=== PATIENT | male | born 1930 | race Caucasian/White ===

== ENCOUNTER 2017-09-19 20:52 | Inpatient (IN) | payer MEDICARE ==
[2017-09-19] MEDS ORDERED: Metoprolol Tartrate 5 MG/5 ML VIAL ONE (21:20)
[2017-09-19 21:59] LABS: CKMB 3.1 ng/mL (0-6.6); Troponin I 0.028 ng/mL (< 0.028)
[2017-09-19] MEDS ORDERED: Acetaminophen 325 MG TAB PO PRN (22:03)
[2017-09-19] MEDS ORDERED: Labetalol HCl 100 MG/20 ML VIAL SLOW IVP PRN (22:10)
[2017-09-20] MEDS: Sodium Chloride 0.9% 1,000 ML IV SCH ×3 (00:33→15:27)
[2017-09-20 01:01] LABS: Troponin I 0.061 ng/mL (< 0.028)
[2017-09-20 02:05] VITALS: BMI 18.2
[2017-09-20 03:52] LABS: #Eosinphils 0.1 thou/uL (0.0-0.7); #Lymphocytes 1.4 thou/uL (1.20-3.40); #Monocytes 0.9 thou/uL (0.11-0.59); #Neutrophils 5.4 thou/uL (1.40-6.50); %Basophils 0.2 % (0.0-1.0); %Eosinophils 1.1 % (0.0-10.0); %Lymphocytes 18.3 % (21.0-51.0); %Monocytes 11.2 % (0.0-10.0); %Neutrophils 69.2 % (42.0-75.0); Hemoglobin 14.5 g/dL (14.0-18.0); Mean Corpuscular HGB CONC 35.1 g/dL (32.0-36.0); Mean Corpuscular Hemoglobin 32.8 pg (27.0-31.0); Mean Corpuscular Volume 93.5 fL (78.0-98.0); Mean Platelet Volume 7.1 fL (7.4-10.4); Platelet Count 188 thou/uL (130-400); RBC Distribution Width 10.9 % (11.5-14.5); Red Blood Cell (RBC) Count 4.41 mill/uL (4.70-6.10); White Blood Cell (WBC) Count 7.8 thou/uL (4.8-10.8)
[2017-09-20 04:17] LABS: Troponin I 0.056 ng/mL (< 0.028)
[2017-09-20 04:46] LABS: Chloride 103 mmol/L (98-107); Potassium 3.5 mmol/L (3.5-5.1); Sodium 139 mmol/L (136-145)
[2017-09-20 04:47] LABS: Calcium 9.2 mg/dL (7.8-10.44); Glucose 87 mg/dL (83-110)
[2017-09-20 04:48] LABS: Anion Gap 11 mmol/L (10-20); Carbon Dioxide 29 mmol/L (23-31)
[2017-09-20 04:50] LABS: Calc. Creatinine Clearance 54 mL/min (70-130); Estimated GFR-MDRD 87
[2017-09-20 04:51] LABS: BUN (Urea Nitrogen) 16 mg/dL (8.4-25.7)
--- NOTE | 2017-09-20 08:20 | HP ---
CHIEF COMPLAINT: Presyncope. HISTORY OF PRESENT ILLNESS: Patient is a very pleasant, healthy 87-year-old male who lives by himsel f with past medical history of BPH, who presents to the hospital with complaints of presyncope like s ymptoms. Patient stated for the past 7 days, he has noticed that whenever he is sitting on his compu ter and trying to read his e-mails, he felt like he was about to pass out. This happened 2 or 3 time s at this time. Patient walked to the bed and tried to lay down to get some relief. Patient stated that since then it happened to him a few times and the patient is afraid especially if he is driving for the symptoms to occur. Patient denies any prodromal symptoms like diaphoresis, palpitations, any chest pain or chest pressure. Patient also feels that for the past few days, he has been complainin g of some abdominal bloating and also which has caused him to have some nausea. The patient states t hat he recently had his teeth pulled on 07/08/2017. Since then, he has not been eating very much. H rc has been on a very liquid diet and has lost a few pounds due to that. Patient states that whenever he eats, he feels a significant amount of fullness which is not attributed to any time and then he f eels nauseated and sometimes belches. Patient also stated that he was on prazosin, which was started about 6 months ago in February and the patient noticed that while he was on that medication, his blood pressure tended to be very low for w hich he has been taking it every other day. However, for the past few days, he has been taking it ev mónica single day because he is having frequent urination in the nighttime. Patient states that his PCP left, so now he has a new PCP who prescribed him tamsulosin, which he has not started as of yet. Rolando brothers thought that his symptoms could have been attributed to this. PAST MEDICAL HISTORY: He has a medical history of BPH. He has a history of brain bleed, nontraumat ic. The patient stated at this time he had headache and besides pain medications, he had no relief a nd that is when his doctors diagnosed him with a brain bleed. The patient also has had an ME accordi ng to him and he stated that, however, it was not because of coronary artery disease, it was due to s tress related. The patient states that his last catheterization, which has been a long time ago. [facility] physician stated that his arteries were normal. PAST SURGICAL HISTORY: He has had an appendectomy, a cholecystectomy and a left knee surgery. SOCIAL HISTORY: Denies any alcohol use, drug abuse or smoking history. The patient has a history of smoking and alcohol, which he quit in 1979. ALLERGIES: He has got no known drug allergies. MEDICATIONS: He takes lovastatin 20 mg daily, aspirin 81 mg daily, tamsulosin 0.4 mg daily. FAMILY HISTORY: Father had stroke at the age of 74, mother had stroke at the age of 79. REVIEW OF SYSTEMS: All negative except for the ones mentioned above in the HPI. PHYSICAL EXAMINATION: VITAL SIGNS: Temperature of 96.7, 61, 16, 99% on room air. His blood pressure is 190/94. GENERAL: He is awake, alert, and oriented x3, does not appear in any distress. CARDIOVASCULAR: S1, S2 present. No murmurs, rubs or gallops; however, his pulse seems to be irregul ar. LUNGS: Clear upon auscultation. No rhonchi or wheezes noted. ABDOMEN: Soft, nontender. Bowel sounds are present x2. EXTREMITIES: No edema. Pedal pulses present x2. He has got no neurological focal deficits. HEENT: I did look into his right ear, he had significant amount of cerumen in his right ear, unable to see his tympanic membrane. In the left ear, his tympanic membrane was pearly and was able to be v isualized. LABORATORY DATA: As of the following: WBC of 7.8, hemoglobin of 14.5, hematocrit 41.2, platelets of 188. Chemistry: Sodium of 139, potassium of 3.5, BUN of 16, creatinine of 0.84. Mildly elevated t roponins. TSH was normal. IMAGING: The patient had a CT head, which indicated some right mastoid and partial middle ear opacif ication and previous old surgical changes from his bleed. He also had a chest x-ray, which indicated bibasilar lung atelectasis or areas of patchy pneumonia. ASSESSMENT AND PLAN: The patient is a very pleasant 87-year-old male who presents to the hospital fo r presyncope. 1. Presyncope. This could be secondary due to a cardiac event versus one of his benign prostatic hy pertrophy medication versus even CT findings of right mastoid and partial middle ear opacification ve rsus arrhythmia. Patient's EKG did have some abnormal arrhythmia. It looks like he had frequent PAC s. The patient states that he has been evaluated by Cardiology in the past about this and was told t hat this was normal for him. However, given his history, we will consult Cardiology. We will also g et an echocardiogram. I have started him on his new medication, tamsulosin. We will also trend trop onins and continue to monitor the patient. I also have checked, ordered an orthostatic blood pressur e on this patient. 2. Abdominal bloating. This could be related to a cardiac event versus gastroparesis versus possibl y being a malignancy. This is a new finding for this patient. We will get a CT abdomen and pelvis f or a better view of his abdomen. If normal and if his cardiac workup is normal, may consider GI. We will put him on a PPI for now. 3. Mild malnutrition. The patient has not been eating for the past few months, but this is because he has 2 teeth pulled and also because he is supposed to be eating a liquid diet for his abdominal bl oating. We will continue to monitor. 4. Benign prostatic hypertrophy. We will continue his tamsulosin. 5. Deep venous thrombosis prophylaxis . We will put the patient on subcu heparin or Lovenox.
[2017-09-20] MEDS: Enoxaparin Sodium 40 MG/0.4 ML SYRINGE SC SCH (09:12)
--- NOTE | 2017-09-20 10:27 | CT ---
ABDOMEN AND PELVIC CT SCAN WITH IV CONTRAST: Date: 09/20/17 HISTORY: 87-year-old male with history of abdominal pain and diarrhea. FINDINGS: Chronic interstitial changes and honeycombing in the lung bases, evidence for chronic change. Status post cholecystectomy. Otherwise, visualized liver, pancreas, spleen, and adrenal glands are unremarka ble. No renal calculus or acute obstruction. Sigmoid colon diverticulosis without acute diverticul itis. No CT evidence for acute appendicitis. Multilevel variable severity lumbar spinal stenosis. IMPRESSION: No significant acute process in the abdomen or pelvis. Other findings as above. POS: MICHOACANO
--- NOTE | 2017-09-20 15:34 | ULT ---
"CAROTID DOPPLER 09/20/17 PROVIDED CLINICAL HISTORY: Syncope. FINDINGS: | Kraft scale and color doppler sonography with spectral analysis was performed of the extracranial gregory tid system bilaterally. Conspicuous atherosclerotic plaque is seen involving each proximal internal carotid artery. Elevation of peak systolic velocity within the mid right internal carotid artery to 1 65 cm/s with corresponding ICA to CCA ratio of 1.7. Antegrade flow is seen in the vertebral arteries. No evidence for hemodynamically significant stenosi s involving the left internal carotid artery. IMPRESSION: Nonspecific elevation of the peak systolic velocity within the right internal carotid artery without corresponding elevation of ICA to CCA ratio. POS: MICHOACANO"
[2017-09-20] MEDS ORDERED: Pravastatin Sodium 20 MG TAB PO SCH (21:00)
[2017-09-20] MEDS ORDERED: Tamsulosin HCl 0.4 MG CAP PO SCH (21:00)
[2017-09-21] MEDS: Sodium Chloride 0.9% 1,000 ML IV SCH ×2 (04:03→04:05)
[2017-09-21] MEDS: Enoxaparin Sodium 40 MG/0.4 ML SYRINGE SC SCH (08:08)
[2017-09-21] MEDS ORDERED: Aspirin 81 mg Enteric Coated Tablet PO SCH (09:00)
[2017-09-21] MEDS ORDERED: Prevnar 13-Val Conj/PF 0.5 ML SYRINGE IM ONE (09:00)
--- NOTE | 2017-09-21 09:02 | CON ---
DATE OF CONSULTATION: 09/20/2017 REFERRING PHYSICIAN: Dr. Cristhian Oneal. REASON FOR CONSULTATION: Abdominal bloating, tightness, and some nausea. He also feels as he is goi ng to faint after this episode. HISTORY OF PRESENT ILLNESS: Mr. Souleymane Roche is a very pleasant 87-year-old male who is very healthy except for history of benign prostatic hypertrophy. He used to take doxazosin . R ecently, he was placed on terazosin and he had an episode of syncope and he passed out. The medicine was changed to tamsulosin by Dr. Lennie Christianson in [place]. The patient has symptoms of what he sa ys he will not pass out. This happened as he would sometimes he working on the computer, sometimes h e feels as he is going to pass out when he go to lie down. He also complains of tightness in the epi gastric area after meals and feels uncomfortable and has nausea. At the same time, he also feels as he is going to pass out. He never had a syncope except if he . He has no dizziness. He has no ringing in the ears or any other neurological symptoms. He has no sensory deficit or motor weakness . Symptoms somewhat difficult to explain. This happens every time he eats. After he eats, he feels the abdomen is tight and uncomfortable and he has to keep on belching. Bowel movements are regular. There is no history of any hematochezia or any melena. He denies chest pain. No palpitation. No history of TIA in the past. No history of any seizure disorder. Symptoms are very difficult to unde rstand and I am not really sure there is connection between eating meals and feeling near passing out . He has no other relevant history. MEDICAL ILLNESSES: Prostatic hypertrophy on tamsulosin. He has no history of hypertension, heart di sease, diabetes, lung disease. SURGERIES: 1. Appendectomy. 2. Cholecystectomy. SOCIAL HISTORY: Patient quit smoking and drinking in 1980s. ALLERGIES: None. MEDICATIONS: 1. Lovastatin 20 mg once a day. 2. Aspirin. 3. Tamsulosin. FAMILY HISTORY: Both parents of stroke in the 70s. REVIEW OF SYSTEMS: A 10-point system review. Constitutional: No history of fever. No weight loss. His strength is good and no other relevant symptoms. Respiratory System: No history of chronic co ugh, hemoptysis, dyspnea. Cardiovascular System: No chest pain, no palpitation, no exertional dyspn ea, orthopnea, or PND. Gastrointestinal: As stated in the history of present illness. Genitourinar y: History of nocturia on tamsulosin. Musculoskeletal and Endocrine: Unremarkable. Neuropsychiatr ic: Unremarkable. PHYSICAL EXAMINATION: GENERAL: Patient is thin built. He is a very pleasant male appears very comfortable. He is awake, alert, and communicative. He is oriented to time, place, and person. VITAL SIGNS: Stable. His pulse is 67, blood pressure is 136/63. HEENT: Conjunctivae clear. NECK: Supple. No adenitis or thyromegaly noted. CARDIOVASCULAR SYSTEM: First and second heart sounds normal. LUNGS: Clear to auscultation. ABDOMEN: Soft and nontender. There are no organomegaly or masses. Bowel sounds normal. EXTREMITIES: Reveal no edema. LABORATORY DATA: CBC shows WBC 7800, hemoglobin 14.5, hematocrit 41.2, MCV 93.5, platelet count 188, 000, polymorphs 69, lymphocytes 18, monocytes 11. Serum chemistries: Sodium is 130, potassium is 3. 5, chloride is 103, bicarbonate 29, BUN is 16, creatinine 0.84, glucose 87, calcium 9.2. Troponin is 0.056. An abdominal CAT scan done showed no pathology. He had a carotid Doppler done today and the carotid Doppler shows no significant stenosis. CLINICAL IMPRESSION: An 87-year-old male with symptoms of near passing out without chest pain withou t any palpitation, or dyspnea. His workup including Doppler study negative. He has a carotid Dopple r study, which is negative. He had a CAT scan of the abdomen, which showed negative. Symptoms are v mónica difficult to understand and I am really not sure what is the connection between eating and feelin g near passing out. I did talk to the patient and explained to him about the information. I offered him to have an EGD and he is on will. I will plan for an EGD tomorrow and make further recommendat ions.
--- NOTE | 2017-09-21 09:02 | CON ---
DATE OF ADMISSION: 09/20/2017 CARDIOLOGY CONSULTATION PRIMARY CARE PHYSICIAN: In this hospital, Dr. Radha Pedro. REFERRING DOCTOR: Cassidy Benjamin M.D. REASON FOR CARDIOLOGY CONSULTATION: Syncopal episode. HISTORY OF PRESENT ILLNESS: Mr. Roche is a very pleasant 87-year-old male with history o f BPH and hypertension. He came to the emergency department for lightheadedness and near syncopal ep isode. On 09/12/2017, he drank some smoothie-like to drink. Since then he started having belching a fter eat and drink and at that time he started feeling the lightheadedness and on 09/18/2017, he went to see primary care doctor for belching and he was told to continue to take the omeprazole 20 mg onc e a day. At that time, the patient's terazosin was stopped and he started taking Flomax 0.4 mg once a day. The night of 09/18/2017, he had four cookies and milk. He took Flomax at that time and he di d not have belching-like sensation and that time he did not have any lightheadedness either and later that night after he ate yogurt, he started having belching and also after he started having lighthea dedness; however, he denies loss of the cultures or really passing out. Even though he was having li ghtheadedness, he could answer questions and responds to them well. During the near lightheadedness- like episodes, he has any shortness of breath, chest pain or discomfort in his chest, palpitations or fluttering or numbness to the left upper arm or any other cardiac complaints. During the initial Cardiology consult assessment, patient denies any cardiac complaints at this time. He has been seen by several cardiologists in the other hospital. He underwent cardiac catheterizatio n in 2004 at [facility] and he was told his coronary artery was normal. He is active, wa lking at the yard without any cardiac complaints, lightheadedness or dizziness. PAST MEDICAL HISTORY: 1. Hypertension. 2. BPH. 3. Hyperlipidemia. 4. History of bleeding inside the brain when he was very young. PAST SURGICAL HISTORY: 1. Cardiac catheterization in 2004, which shows normal according to the patient and the family julisabe r. 2. Bilateral cataract surgery in 2017. 3. Appendectomy. 4. Cholecystectomy. 5. Left knee surgery replacement. FAMILY HISTORY: The patient's mother had CVA at age of 74. The patient's father also had a CVA at t he age of 79. SOCIAL HISTORY: The patient lives by herself. He has a history of smoking, ETOH abuse, but he quit in 1979. ALLERGIES: He has no known drug allergies. HOME MEDICATIONS: Flomax 0.4 mg once a day, aspirin 81 mg once a day, lovastatin 20 mg once a day an d omeprazole 20 mg once a day. REVIEW OF SYSTEMS: Negative except patient uses walker sometimes for left knee pain and he has upper and lower dentures. Other than that, the patient denies any GI bleed, hematuria, blood in the stool , please see the HPI. PHYSICAL EXAMINATION: VITAL SIGNS: The patient's orthostatic blood pressure supine 161/72, sitting 136/63, standing 124/60 , pulse is 67, respiratory rate 16, O2 sat 99% on room air, temperature 97.5. GENERAL: Patient is well-developed, well-nourished without any acute distress. HEAD: Normocephalic, atraumatic. EYES: Extraocular muscle movement intact. ENT: Oral nasal mucosa is moist without lesion. At this moment, he does not have any dentures. NECK: No JVD. Neck is supple and normal range of motion. CHEST: The lung was clear to auscultate bilaterally. No rales, rhonchi, or wheezing noted. CARDIOVASCULAR: Regularly regular, normal S1, S2. There are no S3, S4. There are 2+ pulses in the dorsal pedis, popliteal, posterior tibial and the bilateral femoral arteries. There are bruits. Car otid pulse, bilateral carotid pulse present. No bruit or thrill noted and no edema in bilateral lowe r extremities. ABDOMEN: Soft, nontender, no mass to palpitate, nondistended, normal active sounds. MUSCULOSKELETAL: Able to move all extremities. Patient denied any claudication. SKIN: Warm and dry. No skin rash, lesion or bruise noted. NEUROLOGIC: Alert, oriented x4, awake, normal affect. Nonfocal. PSYCHIATRIC: Mood and affect normal. EKG: A 12-lead EKG showed a normal sinus rhythm and the telemetry records show no pulses . LABORATORY DATA: WBC 7.8, hemoglobin 14.5, hematocrit 41.2, platelets 188. Sodium 139, potassium 3. 5, BUN 16, creatinine 0.84. CK-MB 3.1. Troponin 0.028, 0.061, 0.056. TSH [address] abdomen kavita wed no significant acute process in the abdomen or pelvis. Chronic interstitial no change and honeyc omb in the lung bases. No renal calculus or obstruction . ASSESSMENT AND PLAN: 1. Lightheadedness secondary to possible vasovagal syncope, near syncopal episode. According to the patient, the patient has lightheadedness after the belching after each which is causing the patient started having the vasovagal near syncopal episode. The patient and the family denied the patient's losing consciousness and otherwise the patient is really active at home without any cardiac complaint s. The patient's carotid Doppler was done and the result is pending at this moment. However, I corie chase, the patient's condition is from vasovagal episode. We would like to continue to monitor the heladio dixon on the telemetry. 2. Benign prostatic hypertrophy. The patient's condition is stable with Flomax at this moment, we w ould like to continue to monitor. 3. Hypertension. The patient's blood pressure is stable. At this moment, the patient does not have any blood pressure medicine except Flomax which might decrease the patient's blood pressure. The rosina brothers's blood pressure is stable at this moment. We would like to continue to monitor. 4. Hyperlipidemia. She is not on any medication; however, she is on the Pravachol at this moment in the hospital. Thank you very much for allowing the Cardiology Service to participate in care of this patient. We m ay follow along with the patient care team and make up for further recommendation as appropriate.
[2017-09-21] MEDS ORDERED: PROPOFOL 200 MG/20 ML VIAL ONE (13:12)
--- NOTE | 2017-09-21 14:04 | PDOC.CTH ---
<Janny Mckeon - Last Filed: 09/21/17 14:32> Cardiology Progress Note - Subjective The pt seen and examined. No overnight events. No cardiac complaints. No belching or lightheadedness after eating since last night. - Objective Vital Signs Temp Pulse Resp BP BP Pulse Ox 09/21/17 12:00 97.9 F 73 16 161/85 H 97 09/21/17 07:35 97.8 F 62 18 148/67 H 98 09/21/17 04:07 97.9 F 56 L 14 126/60 96 Admit Weight 134 lb 8 oz Weight 134 lb 8 oz 09/20/17 09/21/17 09/22/17 06:59 06:59 06:59 Intake Total 1591 Output Total 500 Balance 1091 - Physical Examination General/Neuro: alert & oriented x3 Neck: no JVD present Lungs: CTA Heart: RRR Abdomen: soft Extremities: other: (No edema) - Telemetry Telemetry Rhythm: SR, PACs 60s - Labs Result Diagrams: 09/20/17 02:54 09/20/17 02:54 Troponin/CKMB CK-MB (CK-2) 3.1 ng/mL (0-6.6) 09/19/17 21:24 Troponin I 0.056 ng/mL (< 0.028) H 09/20/17 02:54 - Assessment/Plan 1. lightheadedness 2/2 vasovagal episode from belching - EGD was negative. He no longer has belching or lightheadedness after having large lunch. 2. s/p 10 sec. Afib - today during EGD. The pt was asymptomatic. D/c home with EVR for 1wk. HTN - stable 3. Hyperlipidemia - on Statin MAR reviewed * From Cardiac standpoint, the pt is stable to d/c home. 1wk EVR will be sent to the pt's address. * The pt will f/u with Dr Pedro' office within 1 month. Review of Systems - Review of Systems Constitutional: reports: no symptoms reported EENTM: reports: no symptoms reported Respiratory: reports: no symptoms reported Cardiac (ROS): reports: no symptoms reported ABD/GI: reports: no symptoms reported : reports: no symptoms reported Musculoskeletal: reports: no symptoms reported <Pedro,G Lui - Last Filed: 09/21/17 22:16> Cardiology Progress Note - Objective Vital Signs Temp Pulse Resp BP BP BP Pulse Ox 09/21/17 15:15 97.6 F 66 18 141/60 H 144/67 H 144/67 H 97 09/21/17 12:00 97.9 F 73 16 161/85 H 97 Admit Weight 134 lb 8 oz Weight 134 lb 8 oz 09/20/17 09/21/17 09/22/17 06:59 06:59 06:59 Intake Total 1591 Output Total 500 Balance 1091 - Labs Result Diagrams: 09/20/17 02:54 09/20/17 02:54 Troponin/CKMB CK-MB (CK-2) 3.1 ng/mL (0-6.6) 09/19/17 21:24 Troponin I 0.056 ng/mL (< 0.028) H 09/20/17 02:54 - Assessment/Plan Pt. was seen and eval. by me. I have discussed the pt. and plan and agree with the A/P by the AMBERLY Mckeon.
[2017-09-21 16:23] VITALS: BP 144/67; TEMP 97.6
[2017-09-21] MEDS ORDERED: Tamsulosin HCl 0.4 MG CAP PO SCH (17:00)
[2017-09-21] MEDS ORDERED: Atorvastatin Calcium 10 MG TAB PO SCH (21:00)
--- NOTE | 2017-09-21 21:53 | ADD-CON ---
ADDENDUM DATE OF CONSULTATION: 09/20/2017 Please refer to the notes already dictated by the nurse practitioner, Janny Mckeon NP. INDICATION FOR CONSULTATION: An 87-year-old patient with a history of presyncopal episodes. HISTORY OF PRESENT ILLNESS: This very unfortunate 87-year-old gentleman who has actually been very h ealthy, had been complaining recently of having not been able to eat. He has complaints of nausea. Everytime, he tries to eat, he has not been eating. He has lost about 30 pounds in the last 6 months . He has been given medications for prostate hypertrophy and he actually passed out, had a syncopal episode back in February after taking the medication, he stopped this medication and was started on s omething else. He has recently been doing well until then recently he started having some presyncopa l episodes. When he was sitting at the computer, he felt like he might pass out, but he has also no t been eating. The last episode he stated when he actually felt like he was going to pass out. He h as made himself a mixture of juice from apple, banana, peach and orange juice. He then was sitting d own and knows he almost passed out after doing this, but continues to have problems with eating. He is actually afraid to eat now for fear that he would become nauseated. He has had no previous signif icant abnormalities. He has had a cholecystectomy before. He did state that at approximately in 200 5, he had a cardiac catheterization and was told that he had normal coronary arteries. He did have a n echocardiogram today which shows a normal ejection fraction and no significant abnormalities were n oted on the echocardiogram. He did have cardiac enzymes performed, these are unremarkable. There is no evidence of myocardial infarction. He was found to have a right carotid artery stenosis, most li cami uncertain of the severity of this and may need further evaluation. At this time, we were asked to see him due to the presyncopal episodes, but these do seem to be associated with his lack of eatin g, but may certainly have something to do with his heart. He may be having a bradycardia or arrhythm ias, but he is unaware of any significant arrhythmias; however, he did say that he has always had an irregular heart rate. Otherwise, he has been relatively healthy gentleman. For his past medical history, social history, family history, allergies, medications, review of syste ms, please refer to the notes dictated by the nurse practitioner. PHYSICAL EXAMINATION: GENERAL: Reveals an elderly gentleman who is in no acute distress at this time. He is alert and russell ented. VITAL SIGNS: Blood pressure is 148/63 supine, sitting was 150 and standing was 117/57. He obviously has orthostatic hypotension. Otherwise, vital signs were stable. HEENT: Shows the head to be normocephalic and atraumatic. He did have very soft right carotid bruit noted. CHEST: Clear to auscultation without rales, rhonchi or wheezing. CARDIOVASCULAR: The heart rate is regular with occasional ectopy. There were no significant murmurs , heaves, thrills, bruits or rubs noted. He does have a very soft systolic murmur noted at the apex, otherwise is unremarkable. ABDOMEN: He is flat, is nontender. I did not palpate any masses. EXTREMITIES: Show no clubbing, cyanosis or edema. Pedal pulses are present. NEUROLOGIC: The patient appears to be fully intact. He is edentulous. SKIN: Warm and dry. IMPRESSION AND RECOMMENDATIONS: 1. Presyncopal episodes, most likely brought on by the lack of caloric intake and also probably some dehydration. He does appear to have orthostatic hypotension and most likely this is the etiology of the presyncopal episodes. We certainly can rule out whether or not he is having any arrhythmias. W e will watch him on the monitor. He may need to have an event monitor when he is discharged from the hospital. Otherwise, his cardiac status appears to be stable at this time, ejection fraction was no rmal. He had a cardiac catheterization in 2004 and was told he had normal coronary arteries and he h as not had any chest pain that would indicate coronary artery disease. 2. History of abdominal discomfort and nausea. He is undergoing an endoscopy tomorrow to determine whether or not there are any abnormalities. He may have a hiatal hernia. We will need to evaluate, but believe the CT scan was unremarkable. At this time, he remains stable from a cardiac standpoint. We would be more than happy to follow the patient with you to determine whether or not some of his presyncopal episodes may be associated with arrhythmias and most likely it is due to his weight loss and decreased p.o. and oral intake.
--- NOTE | 2017-09-22 00:41 | DIS ---
DATE OF ADMISSION: 09/20/2017 DATE OF DISCHARGE: 09/21/2017 CONDITION AT THE TIME OF DISCHARGE: Stable and improved. DISCHARGE DIAGNOSES: 1. Near syncope, likely vasovagal episode versus orthostatic hypotension. 2. Orthostatic hypotension resolved after IV fluid resuscitation. 3. Ten second run of atrial fibrillation during EGD, resolved. 4. Dyslipidemia. PRIMARY CARE PHYSICIAN: Lennie Christianson in [place]. DISCHARGE MEDICATIONS: Remain the same as admission medication, tamsulosin 0.4 mg daily, lovastatin 40 mg daily, aspirin 81 mg daily. INHOUSE CONSULTATIONS: Cardiology, Dr. Pedro and Gastroenterology, Dr. Martinez. PROCEDURES DONE IN THE HOSPITAL: 1. CT scan of the abdomen and pelvis which is negative for any acute process. 2. EGD by Dr. Edmonds. This was reportedly normal, but I do not have access to the formal report at this time. 3. Carotid Doppler ultrasound, which shows nonspecific elevation of the peak systolic velocity in th e right internal carotid artery without corresponding elevation of the ICA to CCA ratio. HISTORY OF PRESENTING ILLNESS: Mr. Roche is a very pleasant and very independent 87-year-old male who was in fairly good health who presented to the emergency room for dizziness and lightheadedness. Complained of some abdominal bloating and nausea. He has been on a very poor liquid diet because of some teeth being pulled out last 2 months ago. He also has lost a few pounds secondary to that. Up on presentation, he was hemodynamically stable. A CT scan of the head was done which showed some rig ht mastoid and partial middle ear opacification without any acute changes. Chest x-ray showed atelec tasis versus pneumonia. His blood pressure was 190/94 upon presentation. He was admitted for furthe r workup on telemetry unit. Please see admission history and physical for further detail. He was fo und to have some PACs on tele monitoring. A CT scan of the abdomen and pelvis was ordered by the adm itting physician. HOSPITAL COURSE: He underwent extensive workup including carotid Doppler ultrasound and CT scan of t he abdomen and pelvis and EGD as above. All of this was rather unremarkable. The patient was found to be orthostatic on presentation. He was started on IV fluids and orthostatics were repeated and hi s orthostatic changes have resolved. He was also seen by Cardiology for his near syncopal episode. They did notice that the patient had 1 0-second run of atrial fibrillation while getting endoscopy earlier today. They recommended an event monitor and Cardiology office will set it up and it will be delivered to the patient's house. They have cleared the patient for discharge today. Dr. Martinez was consulted with regards to his abdomi nal bloating and he underwent EGD, which was reportedly normal. Formal report is pending at this korin e. The patient was seen and examined at bedside and his son is at the room. He was given options for st aying in the hospital and get evaluated by OT, PT for possible home health, but he declined. He is e ager to go home and has been cleared by GI and Cardiology at this point, so he will be discharged. PHYSICAL EXAMINATION: VITAL SIGNS: Temperature 97.6, pulse of 66, respirations 18, saturating 97% on room air, blood press ure 141/60. Orthostatics negative. GENERAL: No acute distress, awake, alert, oriented x3. CHEST: Clear to auscultation without any wheezing, rales or rhonchi. Rhythm is regular without any murmur, rubs or gallops. LABORATORY DATA: TSH normal. Troponin 0.028, then 0.061, then 0.056. DISCHARGE INSTRUCTIONS: He is instructed to follow up with his primary care physician as soon as jf newman. He has appointment with Cardiology in 1 month. Event monitor will be delivered to his house by [facility]. Total time spent in the discharge of this patient 32 minutes. Discharge plan was discussed with the patient and son who verbalized understanding.
--- NOTE | 2017-09-22 02:11 | OP ---
DATE OF PROCEDURE: 09/21/2017 OPERATIVE PROCEDURE: Esophagogastroduodenoscopy with biopsy. PREOPERATIVE DIAGNOSES: An 87-year-old male with chronic dyspepsia, abdominal bloating, an d nausea, which occurs mostly after meals. The patient undergoing esophagogastroduodenoscopy. POSTOPERATIVE DIAGNOSES: 1. Hiatus hernia. 2. 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 3. Gastric polyps. 4. Normal duodenum. PROCEDURE NOTE: The patient was placed on his left lateral position and was given sedation by the An esthesia Department. A [employer] video gastroscope under direct vision was passed down the oropharynx, past the GE junction, into the stomach, and subsequently into descending duodenum. The upper 2/3 of the esophageal mucosa appeared normal. Over the distal esophagus, there was salmon-colored mucosa wi th irregular Z-line. The findings suggestive of Kelly's mucosa. No ulcerations or any esophagitis seen. He has hiatus hernia. Retroflexion failed to show any pathology in the fundus or cardia. Th e gastric body showed multiple polyps, which appeared hyperplastic endoscopically. There . The gastric antrum and incisura angularis, no pathology seen. The duodenal bulb and descending duodenum , no pathology seen. The stomach was decompressed and the scope removed. RECOMMENDATIONS: 1. Diet as tolerated. 2. No pathology seen in the stomach to explain the patient's symptoms. 3. Empiric PPI therapy.
[2017-09-22] MEDS ORDERED: Aspirin 81 mg Enteric Coated Tablet PO SCH (09:00)
== END 2017-09-21 15:58 | disposition home or self-care (01) | DRG 312 ==
LOC: ERS 20:52 → 2NO 21:21
PROVIDERS: ADMIT Internal Medicine; ATTEND Internal Medicine
PROC: 0DJ08ZZ Inspection of Upper Intestinal Tract, Via Natural or Artificial Opening Endoscopic (ICD-10-PCS; principal; 2017-09-21)
DX: I95.1 Orthostatic hypotension (principal); E44.1 Mild protein-calorie malnutrition; Z68.1 Body mass index [BMI] 19.9 or less, adult; R55 Syncope and collapse; N40.0 Benign prostatic hyperplasia without lower urinary tract symptoms; E78.5 Hyperlipidemia, unspecified; I48.91 Unspecified atrial fibrillation; K44.9 Diaphragmatic hernia without obstruction or gangrene; K31.7 Polyp of stomach and duodenum; Z87.891 Personal history of nicotine dependence; Z79.82 Long term (current) use of aspirin; Z79.899 Other long term (current) drug therapy
CPT/HCPCS: 36415; 74177; 80048; 82553; 84443; 84484; 85025; 88305; 88312; 88313; 93005; 93306; 93880; 96374; A4216; J1650; J2704